=== PATIENT | male | born 1975 | race Caucasian/White ===

== ENCOUNTER 2016-11-25 14:10 | Inpatient (IN) | payer MEDICAID, OTHER ==
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
[2016-11-25 14:39] LABS: ABSOLUTE EOSINOPHILS # (AUTO) 0.1 10^3/uL (0.0-0.6); ABSOLUTE MONOCYTES (AUTO) 0.6 10^3/uL (0.1-1.4); ABSOLUTE NEUT (AUTO) 10.1 10^3/uL (1.7-8.2); BASOPHILS % (AUTO) 0.4 % (0-2); EOSINOPHILS % (AUTO) 0.5 % (0-6); HEMATOCRIT 46.5 % (37.9-51.0); HEMOGLOBIN 15.8 g/dL (13.5-17.0); HGB HCT DIFFERENCE 0.9; LYMPHOCYTES % (AUTO) 8.2 % (13-45); MEAN CORPUSCULAR HEMOGLOBIN 32.2 pg (27.0-33.4); MEAN CORPUSCULAR VOLUME 95 fl (80-97); MONOCYTES % (AUTO) 4.9 % (3-13); RED BLOOD COUNT 4.91 10^6/uL (4.35-5.55); RED CELL DISTRIBUTION WIDTH 13.6 % (11.5-14.0); WHITE BLOOD COUNT 11.7 10^3/uL (4.0-10.5)
[2016-11-25] MEDS ORDERED: ETOMIDATE INJ/PF 20 MG/10 ML SDV IV ONE ×2 (14:43→15:50)
[2016-11-25 14:45] LABS: ALANINE AMINOTRANSFERASE 38 U/L (21-72); ALBUMIN 4.9 g/dL (3.5-5.0); ALKALINE PHOSPHATASE 81 U/L (38-126); ANION GAP 11 (5-19); ASPARTATE AMINO TRANSFERASE 29 U/L (17-59); BILIRUBIN,DIRECT 0.5 mg/dL (0.0-0.4); BILIRUBIN,TOTAL 0.9 mg/dL (0.2-1.3); BLOOD UREA NITROGEN 16 mg/dL (7-20); CALCIUM 10.2 mg/dL (8.4-10.2); CARBON DIOXIDE 26 mmol/L (22-30); CHLORIDE 108 mmol/L (98-107); CREATINE KINASE 213 U/L (55-170); CREATININE RESULT 0.78 mg/dL (0.52-1.25); GLUCOSE 99 mg/dL (75-110); LIPASE 38.9 U/L (23-300); POTASSIUM 4.6 mmol/L (3.6-5.0); SODIUM 145.3 mmol/L (137-145); TOTAL PROTEIN 7.8 g/dL (6.3-8.2)
[2016-11-25 14:52] LABS: ALCOHOL < 10 mg/dL (NONE DETECTED)
[2016-11-25 14:56] LABS: CREATINE KINASE MB 2.62 ng/mL (<4.55)
[2016-11-25 14:58] LABS: TROPONIN I < 0.012 ng/mL
--- NOTE | 2016-11-25 15:03 | RADIOLOGY REPORT (SQ) ---
EXAM DESCRIPTION: CHEST SINGLE VIEW COMPLETED DATE/TIME: 11/25/2016 2:54 pm REASON FOR STUDY: post intubation COMPARISON: 05/09/2015 EXAM PARAMETERS: NUMBER OF VIEWS: One view. TECHNIQUE: Single frontal radiographic view of the chest acquired. RADIATION DOSE: NA LIMITATIONS: None. FINDINGS: LUNGS AND PLEURA: No new opacities, masses or pneumothorax. No pleural effusion. MEDIASTINUM AND HILAR STRUCTURES: No masses. Contour normal. HEART AND VASCULAR STRUCTURES: Heart normal in size. Normal vasculature. BONES: No acute findings. HARDWARE: Endotracheal tube terminates 5.5 cm above the audra. Nasogastric tube terminates expected location of the stomach. OTHER: No other significant finding. IMPRESSION: NO ACUTE RADIOGRAPHIC FINDING IN THE CHEST. SATISFACTORY PLACEMENT ENDOTRACHEAL TUBE AN D NASOGASTRIC TUBE. TECHNICAL DOCUMENTATION: JOB ID: [id number]
--- NOTE | 2016-11-25 15:10 | RADIOLOGY REPORT (SQ) ---
EXAM DESCRIPTION: CT HEAD WITHOUT COMPLETED DATE/TIME: 11/25/2016 3:02 pm REASON FOR STUDY: unresponsive COMPARISON: 05/09/2015. TECHNIQUE: Axial images acquired through the brain without intravenous contrast. Images reviewed wi th bone, brain and subdural windows. Images stored on PACS. All CT scanners at this facility use dose modulation, iterative reconstruction, and/or weight based d osing when appropriate to reduce radiation dose to as low as reasonably achievable (ALARA). [facility]: Dose Right [facility]: CareDose [facility]: Dose Right [facility]: Teradose 4D [facility]: Smart EndoInSight RADIATION DOSE: Up-to-date CT equipment and radiation dose reduction techniques were employed. CTDIv ol: 64.6 mGy. DLP: 1163 mGy-cm. mGy. LIMITATIONS: None. FINDINGS: VENTRICLES: Normal size and contour. CEREBRUM: No masses. No hemorrhage. No midline shift. Normal taylor/white matter differentiation. N o evidence for acute infarction. CEREBELLUM: No masses. No hemorrhage. No alteration of density. No evidence for acute infarction. EXTRAAXIAL SPACES: No fluid collections. No masses. ORBITS AND GLOBE: No intra- or extraconal masses. Normal contour of globe without masses. CALVARIUM: No fracture. PARANASAL SINUSES: No fluid or mucosal thickening. SOFT TISSUES: No mass or hematoma. OTHER: No other significant finding. IMPRESSION: NORMAL BRAIN CT WITHOUT CONTRAST. TECHNICAL DOCUMENTATION: JOB ID: [id number] Quality ID # [id number]: Final reports with documentation of one or more dose reduction techniques (e.g., Au tomated exposure control, adjustment of the mA and/or kV according to patient size, use of iterative reconstruction technique) 2010 [employer]- All Rights Reserved
[2016-11-25 15:28] LABS: ARTERIAL BLOOD BASE EXCESS 1.1 mmol/L; ARTERIAL BLOOD O2 SATURATION 96.6 % (94-98)
[2016-11-25 15:34] LABS: APPEARANCE,URINE CLEAR; BILIRUBIN,URINE NEGATIVE (NEGATIVE); GLUCOSE, URINE NEGATIVE (NEGATIVE); KETONES,URINE 20 mg/dL (NEGATIVE); LEUKOCYTE ESTERASE,URINE NEGATIVE (NEGATIVE); NITRITE,URINE NEGATIVE (NEGATIVE); PROTEIN,URINE NEGATIVE (NEGATIVE); UROBILINOGEN,URINE NEGATIVE mg/dL (<2.0)
[2016-11-25 15:47] LABS: URINE BARBITURATES SCREEN NEGATIVE; URINE METHADONE SCREEN NEGATIVE; URINE OPIATES LOW NEGATIVE; URINE PHENCYCLIDINE SCREEN NEGATIVE
[2016-11-25] MEDS ORDERED: NALOXONE HCL INJ 2 MG/2 ML DISP.SYRIN IV ONE (15:50)
[2016-11-25] MEDS ORDERED: ROCURONIUM BROMIDE INJ 50 MG/5 ML VIAL IV ONE (15:50)
[2016-11-25] MEDS ORDERED: ACETAMINOPHEN 650 MG SUPP.RECT PR PRN (16:19)
[2016-11-25] MEDS ORDERED: PIPERACILLIN/TAZOBACTAM 3.375 GM VIAL IV ONE (16:31)
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
[2016-11-25 17:38] LABS: CREATINE KINASE MB 2.64 ng/mL (<4.55)
[2016-11-25 17:40] LABS: TROPONIN I < 0.012 ng/mL
[2016-11-25] MEDS: NORMAL SALINE 1000 ML 1,000 ML IV PRN (22:00)
[2016-11-25] MEDS: PROPOFOL 100 ML IV PRN (22:00)
[2016-11-26] MEDS: NORMAL SALINE 1000 ML 1,000 ML IV PRN ×3 (01:46→20:59)
[2016-11-26] MEDS: PROPOFOL 100 ML IV PRN ×2 (01:46→07:31)
[2016-11-26 04:07] LABS: ABSOLUTE EOSINOPHILS # (AUTO) 0.1 10^3/uL (0.0-0.6); ABSOLUTE LYMPHOCYTES (AUTO) 1.3 10^3/uL (0.5-4.7); ABSOLUTE MONOCYTES (AUTO) 0.8 10^3/uL (0.1-1.4); ABSOLUTE NEUT (AUTO) 11.4 10^3/uL (1.7-8.2); BASOPHILS % (AUTO) 0.3 % (0-2); EOSINOPHILS % (AUTO) 0.5 % (0-6); HEMATOCRIT 40.3 % (37.9-51.0); HEMOGLOBIN 13.8 g/dL (13.5-17.0); HGB HCT DIFFERENCE 1.1; LYMPHOCYTES % (AUTO) 9.6 % (13-45); MEAN CORPUSCULAR HEMOGLOBIN 32.3 pg (27.0-33.4); MEAN CORPUSCULAR HGB CONC 34.2 g/dL (32.0-36.0); MEAN CORPUSCULAR VOLUME 94 fl (80-97); MONOCYTES % (AUTO) 5.9 % (3-13); RED BLOOD COUNT 4.27 10^6/uL (4.35-5.55); RED CELL DISTRIBUTION WIDTH 13.8 % (11.5-14.0); SEGMENTED NEUTROPHILS % (AUTO) 83.7 % (42-78); WHITE BLOOD COUNT 13.6 10^3/uL (4.0-10.5)
[2016-11-26 04:14] LABS: ALANINE AMINOTRANSFERASE 32 U/L (21-72); ALBUMIN 3.8 g/dL (3.5-5.0); ALKALINE PHOSPHATASE 65 U/L (38-126); ANION GAP 9 (5-19); ASPARTATE AMINO TRANSFERASE 17 U/L (17-59); BILIRUBIN,DIRECT 0.4 mg/dL (0.0-0.4); BILIRUBIN,TOTAL 0.8 mg/dL (0.2-1.3); BLOOD UREA NITROGEN 18 mg/dL (7-20); CALCIUM 9.2 mg/dL (8.4-10.2); CARBON DIOXIDE 24 mmol/L (22-30); CHLORIDE 111 mmol/L (98-107); CREATINE KINASE 149 U/L (55-170); CREATININE RESULT 0.72 mg/dL (0.52-1.25); GLUCOSE 91 mg/dL (75-110); MAGNESIUM 2.1 mg/dL (1.6-2.3); PHOSPHORUS 3.5 mg/dL (2.5-4.5); SODIUM 144.1 mmol/L (137-145); TOTAL PROTEIN 6.3 g/dL (6.3-8.2)
[2016-11-26 04:25] LABS: CREATINE KINASE MB 1.66 ng/mL (<4.55)
[2016-11-26 04:28] LABS: POTASSIUM 3.5 mmol/L (3.6-5.0); TROPONIN I < 0.012 ng/mL
--- NOTE | 2016-11-26 07:34 | EKG REPORT ---
SEVERITY:- ABNORMAL ECG - SINUS RHYTHM CARLYN, CONSIDER BIATRIAL ABNORMALITIES INCOMPLETE RIGHT BUNDLE BRANCH BLOCK : Confirmed by: Gunner Espinosa MD 26-Nov-2016 07:33:58
[2016-11-26] MEDS: POTASSI CL 20 MEQ/50 ML RIDER 20 MEQ/50 ML RTUPB IV SCH ×2 (09:25→10:10)
[2016-11-26] MEDS ORDERED: GABAPENTIN 300 MG CAPSULE PO ONE (10:00)
[2016-11-26] MEDS ORDERED: PANTOPRAZOLE SODIUM 40 MG VIAL IV SCH (10:00)
[2016-11-26] MEDS: TRAMADOL HCL 50 MG TABLET PO PRN ×4 (10:03→23:59)
[2016-11-26] MEDS: ENOXAPARIN SODIUM INJ 40 MG/0.4 ML DISP.SYRIN SUBCUT SCH (10:07)
--- NOTE | 2016-11-26 10:12 | PDOC PROGRESS REPORT ---
Subjective Progress Note for:: 11/26/16 Subjective:: Pt was seen earlier this morning while intubated. Sedation was turned off and pt was awake. Pt was able to follow commands without difficulty. Pt was seen again after extubation and he stated that he took gabapentin, baclofen, and alcohol together which caused him to pass out. Pt's family is present. Spoke to pt's boyfriend in the hallway. Physical Exam Vital Signs: Temp Pulse Resp BP Pulse Ox 99.3 F 86 24 H 110/62 100 11/26/16 08:00 11/26/16 09:26 11/26/16 09:26 11/26/16 09:26 11/26/16 09:26 Intake & Output 11/25/16 11/26/16 11/27/16 06:59 06:59 06:59 Intake Total 1895 Output Total 675 100 Balance 1220 -100 Weight 84.7 kg General appearance: PRESENT: no acute distress, well-developed, well-nourished Head exam: PRESENT: atraumatic, normocephalic Eye exam: PRESENT: conjunctiva pink, EOMI, PERRLA. ABSENT: scleral icterus Ear exam: PRESENT: normal external ear exam Mouth exam: PRESENT: moist, tongue midline Neck exam: ABSENT: carotid bruit, JVD, lymphadenopathy, thyromegaly Respiratory exam: PRESENT: clear to auscultation christopher. ABSENT: rales, rhonchi, wheezes Cardiovascular exam: PRESENT: RRR. ABSENT: diastolic murmur, rubs, systolic murmur Pulses: PRESENT: normal dorsalis pedis pul Vascular exam: PRESENT: normal capillary refill GI/Abdominal exam: PRESENT: normal bowel sounds, soft. ABSENT: distended, guarding, mass, organolmegaly, rebound, tenderness Extremities exam: PRESENT: full ROM. ABSENT: calf tenderness, clubbing, pedal edema Musculoskeletal exam: PRESENT: full ROM Neurological exam: PRESENT: alert, awake, oriented to person, oriented to place , oriented to time, oriented to situation, CN II-XII grossly intact. ABSENT: motor sensory deficit Psychiatric exam: PRESENT: depressed, flat affect Skin exam: PRESENT: dry, warm Results Laboratory Results: 11/26/16 03:49 11/26/16 03:49 11/26/16 11/26/16 11/26/16 03:49 03:49 03:49 WBC 13.6 H RBC 4.27 L Hgb 13.8 Hct 40.3 MCV 94 MCH 32.3 MCHC 34.2 RDW 13.8 Plt Count 158 Seg Neutrophils % 83.7 H Lymphocytes % 9.6 L Monocytes % 5.9 Eosinophils % 0.5 Basophils % 0.3 Absolute Neutrophils 11.4 H Absolute Lymphocytes 1.3 Absolute Monocytes 0.8 Absolute Eosinophils 0.1 Absolute Basophils 0.0 Sodium 144.1 Potassium 3.5 L D Chloride 111 H Carbon Dioxide 24 Anion Gap 9 BUN 18 Creatinine 0.72 Est GFR ( Amer) > 60 Est GFR (Non-Af Amer) > 60 Glucose 91 Calcium 9.2 Phosphorus 3.5 Magnesium 2.1 Total Bilirubin 0.8 AST 17 ALT 32 Alkaline Phosphatase 65 Total Protein 6.3 Albumin 3.8 Triglycerides 129 11/25/16 11/25/16 11/26/16 16:59 16:59 03:49 Creatine Kinase 216 H 149 CK-MB (CK-2) 2.64 Troponin I < 0.012 11/26/16 03:49 Creatine Kinase CK-MB (CK-2) 1.66 Troponin I < 0.012 Impressions: Head CT 11/25/16 14:27 IMPRESSION: NORMAL BRAIN CT WITHOUT CONTRAST. Chest X-Ray 11/25/16 14:28 IMPRESSION: NO ACUTE RADIOGRAPHIC FINDING IN THE CHEST. SATISFACTORY PLACEMENT ENDOTRACHEAL TUBE AND NASOGASTRIC TUBE. Assessment & Plan - Diagnosis (1) Acute hypercapnic respiratory failure Is this a current diagnosis for this admission?: Yes Plan: Pt extubated this morning. Pt current doing well on room air. Will check CXR in am. (2) Acute encephalopathy Is this a current diagnosis for this admission?: Yes Plan: Resolved. Pt alert and oriented X 3. (3) Drug overdose, intentional Qualifiers: Encounter type: initial encounter Qualified Code(s): T50.902A - Poisoning by unspecified drugs, medicaments and biological substances, intentional self- harm, initial encounter Is this a current diagnosis for this admission?: Yes Plan: Boyfriend states that pt was stating that he wanted to kill himself. Pt states that he took gabapentin, baclofen, and alcohol together. (4) Hypokalemia Is this a current diagnosis for this admission?: Yes Plan: Will give Potassium replacement. (5) Suicidal intent Is this a current diagnosis for this admission?: Yes Plan: Pt on IVC. Pt will have sitter. (6) Chemical pneumonitis Is this a current diagnosis for this admission?: Yes Plan: Zosyn. Pt was febrile overnight. Pt's sputum culture positive for Gram Neg Organism. (7) Depression Qualifiers: Depression Type: major depressive disorder Major depression recurrence: recurrent Is this a current diagnosis for this admission?: Yes Plan: Pt's Partner states that pt has had problems with depression in the past. Will have pt evaluated further. (8) H/O ETOH abuse Is this a current diagnosis for this admission?: Yes Plan: Will give Rally bag. (9) Chronic back pain Qualifiers: Back pain location: low back pain Back pain laterality: left Sciatica presence: with sciatica Sciatica laterality: sciatica of left side Qualified Code(s): M54.42 - Lumbago with sciatica, left side; G89.29 - Other chronic pain Is this a current diagnosis for this admission?: Yes Plan: Will restart Gabapentin and tramadol. Baclofen discontinued. (10) Sciatica Qualifiers: Laterality: unspecified laterality Qualified Code(s): M54.30 - Sciatica, unspecified side Is this a current diagnosis for this admission?: Yes Plan: Chronic issues. Supportive care. Will restart Gabapentin and Tramadol. (11) DVT prophylaxis Is this a current diagnosis for this admission?: Yes (12) Narcotic abuse in remission Is this a current diagnosis for this admission?: Yes Plan: Supportive care.
--- NOTE | 2016-11-26 10:59 | RADIOLOGY REPORT (SQ) ---
EXAM DESCRIPTION: CHEST SINGLE VIEW COMPLETED DATE/TIME: 11/26/2016 10:49 am REASON FOR STUDY: Extubated COMPARISON: 11/25/2016 EXAM PARAMETERS: NUMBER OF VIEWS: One view. TECHNIQUE: Single frontal radiographic view of the chest acquired. RADIATION DOSE: NA LIMITATIONS: None. FINDINGS: LUNGS AND PLEURA: No opacities, masses or pneumothorax. No pleural effusion. MEDIASTINUM AND HILAR STRUCTURES: No masses. Contour normal. HEART AND VASCULAR STRUCTURES: Heart normal in size. Normal vasculature. BONES: No acute findings. HARDWARE: None in the chest. OTHER: No other significant finding. IMPRESSION: NO ACUTE RADIOGRAPHIC FINDING IN THE CHEST. TECHNICAL DOCUMENTATION: JOB ID: [id number]
[2016-11-26] MEDS: PIPERACILLIN SODIUM/TAZOBACTAM 3.375 GM in NORMAL SALINE 100 ML IV SCH ×3 (11:50→23:59)
[2016-11-26] MEDS: GABAPENTIN 300 MG CAPSULE PO SCH ×3 (11:50→23:59)
[2016-11-26] MEDS ORDERED: LIDOCAINE 5% (700 MG) TRANSDERMAL ADH..PATCH TP ONE (16:00)
--- NOTE | 2016-11-26 16:28 | PSYCHOLOGICAL NOTE ---
Psych Note - Psych Note Psych Note: Patient is a 41 year old male who has been admitted to [facility] due to polypharm overdose, requiring intubation to protect his airway. Patient was subsequently admitted to ICU; however, was extubated this morning. Patient states he is currently experiencing a tremendous amount of pain. Patient states the pain medication no longer works, and he decided to drink alcohol, which he states is good for temporarily getting rid of pain. He states he took his nighttime dose of Lyrica and Baclofin, and states the combination was "too much." Patient states he cannot recall if he took more medication then what is prescribed. He states he was intoxicated from drinking half a bottle of tequila, and cannot remember. Patient denies this was a suicide attempt. Patient states he would have never have tried suicide but cannot remember if he took extra pills. Patient does report that his boyfriend provides him with his pills, but cannot recall if they are just laid out or if they are in a weekly pill counter. Patient states he does have access to the pill bottles. Patient states he has disability from the state of [place] due to two herniated discs (L4 & L5). Patient states he has had multiple surgeries, as recently as April 2016 in [place]. He states he has not engaged in outpatient or pain management here in [place], where he has lived for 2 years, because his [place] Medicaid will not cover services here. Patient states he has been told by numerous individuals (non professionals) that he would be ineligible in [place] for Medicaid and has not applied. Patient states he has an appointment in 4 days in [place] for a third surgery. Patient reports he stays with them in [place], and uses their address as his home address for insurance purposes. When discussing depression and history of suicide attempts, patient does acknowledge that he has had 2 prior attempts, specifically at age 16 and once last year requiring medical attention here in this hospital. Patient states he moved here to be with his boyfriend, but is not sure on their current status. Patient then states that the episode last year was not a suicide attempt, just another example of him drinking and wanting the pain to subside. Nurse reports patient will likely be downgraded to the floor. Patient presents with some mild confusion and appears to struggle to accurately recall information. Patient does acknowledge that he is unsure of the future of his relationship, and that his boyfriend may not wish to continue the relationship. Patient will be reevaluated likely tomorrow to allow for him to clear mentally and provide accurate recall of information. Patient is recommended to remain under IVC for further evaluation and disposition. Will track.
[2016-11-26] MEDS ORDERED: ACETAMINOPHEN 325 MG TABLET ONE (17:22)
[2016-11-26] MEDS: FAMOTIDINE 20 MG TABLET PO SCH (21:00)
[2016-11-26] MEDS: ACETAMINOPHEN 325 MG TABLET PO PRN (21:00)
[2016-11-27] MEDS: ACETAMINOPHEN 325 MG TABLET PO PRN (04:01)
[2016-11-27] MEDS: TRAMADOL HCL 50 MG TABLET PO PRN ×3 (04:01→12:44)
[2016-11-27 05:26] LABS: ABSOLUTE BASOPHILS # (AUTO) 0.1 10^3/uL (0.0-0.2); ABSOLUTE EOSINOPHILS # (AUTO) 0.1 10^3/uL (0.0-0.6); ABSOLUTE LYMPHOCYTES (AUTO) 1.5 10^3/uL (0.5-4.7); ABSOLUTE MONOCYTES (AUTO) 0.7 10^3/uL (0.1-1.4); ABSOLUTE NEUT (AUTO) 7.2 10^3/uL (1.7-8.2); BASOPHILS % (AUTO) 0.6 % (0-2); EOSINOPHILS % (AUTO) 1.5 % (0-6); HEMATOCRIT 41.1 % (37.9-51.0); HEMOGLOBIN 14.1 g/dL (13.5-17.0); HGB HCT DIFFERENCE 1.2; LYMPHOCYTES % (AUTO) 15.2 % (13-45); MEAN CORPUSCULAR HGB CONC 34.4 g/dL (32.0-36.0); MEAN CORPUSCULAR VOLUME 96 fl (80-97); MONOCYTES % (AUTO) 7.4 % (3-13); RED BLOOD COUNT 4.28 10^6/uL (4.35-5.55); RED CELL DISTRIBUTION WIDTH 13.4 % (11.5-14.0); SEGMENTED NEUTROPHILS % (AUTO) 75.3 % (42-78); WHITE BLOOD COUNT 9.6 10^3/uL (4.0-10.5)
[2016-11-27] MEDS: GABAPENTIN 300 MG CAPSULE PO SCH ×2 (05:28→12:44)
[2016-11-27] MEDS: PIPERACILLIN SODIUM/TAZOBACTAM 3.375 GM in NORMAL SALINE 100 ML IV SCH ×2 (05:28→12:44)
[2016-11-27 05:42] LABS: ALANINE AMINOTRANSFERASE 37 U/L (21-72); ALBUMIN 4.1 g/dL (3.5-5.0); ALKALINE PHOSPHATASE 76 U/L (38-126); ANION GAP 10 (5-19); ASPARTATE AMINO TRANSFERASE 36 U/L (17-59); BILIRUBIN,DIRECT 0.5 mg/dL (0.0-0.4); BLOOD UREA NITROGEN 20 mg/dL (7-20); CALCIUM 9.5 mg/dL (8.4-10.2); CARBON DIOXIDE 23 mmol/L (22-30); CHLORIDE 109 mmol/L (98-107); CREATININE RESULT 0.73 mg/dL (0.52-1.25); GLUCOSE 96 mg/dL (75-110); POTASSIUM 3.6 mmol/L (3.6-5.0); TOTAL PROTEIN 6.5 g/dL (6.3-8.2)
[2016-11-27] MEDS: ENOXAPARIN SODIUM INJ 40 MG/0.4 ML DISP.SYRIN SUBCUT SCH (09:01)
[2016-11-27] MEDS: NORMAL SALINE 1000 ML 1,000 ML IV PRN (09:05)
[2016-11-27] MEDS ORDERED: LIDOCAINE 5% (700 MG) TRANSDERMAL ADH..PATCH TP SCH (10:00)
[2016-11-27] MEDS: FAMOTIDINE 20 MG TABLET PO SCH (10:05)
--- NOTE | 2016-11-27 12:56 | PSYCHOLOGICAL NOTE ---
Psych Note - Psych Note Psych Note: Conducted check in with patient who is a 41 year old male under IVC due to polypharm overdose. Patient today maintains that this was not an attempt at suicide, despite initial reports from collateral contacts. Patient today states he thinks it was the mixture of alcohol and pills which caused the episode. Patient states he is in pain, and it is not being properly managed at this time. Patient states his parents, who are bedside, plan to take him back to [place] today if possible, so he may attend his appointment with surgical in three days. Patient states he is unsure of his future with his significant other; however, feels he must first address his chronic pain. Patient states he would like to be discharged to his parent's care to travel back to [place] to begin the process of a 3rd surgery, this time he states for possible stimulator implant. Patient states his only "crime" was trying to go to sleep while in excruciating pain. Patient provides consent to speak with his parents. Mother and father collectively report they do not believe the patient attempted suicide. They state they need to get on the road to go to [place], and are waiting on patient to be released from the involuntary commitment. Father states, "he did not try and kill himself. He is in pain." Father states he is also waiting on an xray of the R ankle. Father states the patient's nurse could not provide a timeframe of when this may occur, so he went down to radiology to ask. Father maintains, despite being challenged by clinician with HIPPA laws, that he was informed by radiology there was no order. Father and mother again state they would like to return to [place], and leave immediately with their son. Both adamantly deny the patient has been experiencing depressive symptoms and or suicidal ideations. Patient is A&O. Mood is anxious with congruent affect. Patient denies suicidal/ homicidal ideations, intent, plan, or means. Patient denies A/V H; delusions not noted. Thought processes were goal oriented towards pain medications (asked numerous times) as well as discharge. Conversational speech was WNL for prosody. Intellectual abilities were estimated within average range. Attention and focus were fair. Insight, judgment, and impulse control were poor. Diagnosis: Deferred Patient is psychiatrically cleared for discharge. Patient is recommended for rescind IVC and discharge to his parents for oversight. Patient is adamant that he did not attempt suicide, which is corroborated by his parents who are willing to oversee patient, and specifically manage his medications. Parents are in agreement to monitor patient's use of medications, and provided his doses only as prescribed. Patient was provided resources for possible return to this [facility] area. Consulted with Dr. Mas i regards to the care and management of this patient. Hospitalist made aware and states he is in agreement with plan of care. Patient is encouraged to engage in a substance abuse assessment upon his return. No further recommendations at this time. Thank you kindly for this consultation.
--- NOTE | 2016-11-27 13:01 | RADIOLOGY REPORT (SQ) ---
EXAM DESCRIPTION: ANKLE LEFT COMPLETE COMPLETED DATE/TIME: 11/27/2016 12:05 pm REASON FOR STUDY: PAIN AND SWELLING COMPARISON: None. NUMBER OF VIEWS: Three views. TECHNIQUE: AP, lateral, and oblique radiographic images acquired of the left ankle. LIMITATIONS: None. FINDINGS: MINERALIZATION: Bones are osteopenic BONES: No acute fracture or dislocation. No worrisome bone lesions. JOINTS: No ankle joint effusion. SOFT TISSUES: Diffuse lateral soft tissue swelling. No foreign body. OTHER: No other significant finding. IMPRESSION: Lateral soft tissue swelling. No acute fracture or malalignment. TECHNICAL DOCUMENTATION: JOB ID: [id number] [employer] All Rights Reserved
[2016-11-27 13:12] VITALS: BP 124/59
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
[2016-11-27] MEDS ORDERED: PHARMACY COMMUNICATION ORDER MC SCH (22:00)
== END 2016-11-27 14:15 | disposition home or self-care (01) | DRG 917 ==
LOC: ER 14:10 → EH 16:19 → UNDOADMIN 16:34 → ICU 18:48 → 5 11-26 19:12
PROVIDERS: ADMIT Family Medicine; ATTEND Family Medicine
PROC: 5A1935Z Respiratory Ventilation, Less than 24 Consecutive Hours (ICD-10-PCS; principal; 2016-11-25)
PROC: 0BH17EZ Insertion of Endotracheal Airway into Trachea, Via Natural or Artificial Opening (ICD-10-PCS; 2016-11-25)
DX: T42.6X2A Poisoning by other antiepileptic and sedative-hypnotic drugs, intentional self-harm, initial encounter (principal); J96.02 Acute respiratory failure with hypercapnia; J69.0 Pneumonitis due to inhalation of food and vomit; T42.8X2A Poisoning by antiparkinsonism drugs and other central muscle-tone depressants, intentional self-harm, initial encounter; T51.0X2A Toxic effect of ethanol, intentional self-harm, initial encounter; E87.6 Hypokalemia; F32.9 Major depressive disorder, single episode, unspecified; G89.29 Other chronic pain; M54.9 Dorsalgia, unspecified; M54.30 Sciatica, unspecified side; B96.20 Unspecified Escherichia coli [E. coli] as the cause of diseases classified elsewhere; B95.1 Streptococcus, group B, as the cause of diseases classified elsewhere; F17.210 Nicotine dependence, cigarettes, uncomplicated; Z79.899 Other long term (current) drug therapy
CPT/HCPCS: 36415; 70450; 71010; 80053; 80307; 81001; 82550; 82553; 82803; 83690; 83735; 84100; 84478; 84484; 85025; 87040; 87070; 87077; 87086; 87186; 87205; 93005; 93010; 94002; 94003; 94799; 96374; 99291; J1650; J2310; J2543; J2704; J3480; J3490; J7030; S0164

== ENCOUNTER 2017-05-02 20:47 | Emergency (ER) | payer OTHER ==
--- NOTE | 2017-05-02 22:22 | ER Document Report ---
ED Medical Screen (RME) - General Chief Complaint: Leg Pain Stated Complaint: LEFT LEG PAIN Time Seen by Provider: 05/02/17 22:12 Mode of Arrival: Ambulatory Information source: Patient TRAVEL OUTSIDE OF THE [place] IN LAST 30 DAYS: No - HPI Notes: 05/02/17 22:20 Patient arrives with complaints of left leg pain. Patient has a long history of chronic back pain and sciatica in the left leg. States that over the last several days he has felt like his left leg has become swollen, the veins in his foot seem to be more prominent he has been having "muscle cramps "in his calf for the last few days. He denies any specific injury to this area. He denies any recent long trips or recent surgeries, he denies any history of DVT or PE. He does report possibly twisting his ankle a few weeks ago due to his abnormal gait secondary to his sciatica and drop foot. He denies any fevers. Patient is nontoxic appearing. Left leg does appear more swollen than the right. Veins appear more prominent in the left foot and ankle. Foot is warm. Dorsalis pedis pulse is +2. Cap refill is brisk. Mild tenderness to palpation of the left calf. No erythema. Patient was evaluated in triage and was medically screened. Any pertinent orders based on the patient's complaints were ordered at this time. Patient will require further evaluation and will be taken to a room for further evaluation by another provider. This was explained to the patient and/or family at this time. - Related Data Allergies/Adverse Reactions: No Known Allergies Allergy (Verified 11/25/16 16:01) Past Medical History Renal/ Medical History: Denies: Hx Peritoneal Dialysis Psychiatric Medical History: Reports: Hx Depression Past Surgical History: Reports: Hx Orthopedic Surgery - Immunizations Hx Diphtheria, Pertussis, Tetanus Vaccination: Yes Physical Exam - Vital signs Vitals: Temp Pulse Resp BP Pulse Ox 98.6 F 64 18 111/59 L 96 05/02/17 22:03 05/02/17 22:03 05/02/17 22:03 05/02/17 22:03 05/02/17 22:03 Course - Vital Signs Vital signs: Temp Pulse Resp BP Pulse Ox 98.6 F 64 18 111/59 L 96 05/02/17 22:03 05/02/17 22:03 05/02/17 22:03 05/02/17 22:03 05/02/17 22:03
--- NOTE | 2017-05-02 23:01 | RADIOLOGY REPORT (SQ) ---
EXAM DESCRIPTION: ANKLE LEFT COMPLETE COMPLETED DATE/TIME: 05/02/2017 10:36 pm REASON FOR STUDY: ankle injury COMPARISON: None. NUMBER OF VIEWS: Three views. TECHNIQUE: AP, lateral, and oblique radiographic images acquired of the left ankle. LIMITATIONS: None. FINDINGS: MINERALIZATION: Normal. BONES: No acute fracture or dislocation. No worrisome bone lesions. JOINTS: No effusions. SOFT TISSUES: Mild soft tissue swelling. No foreign body. OTHER: No other significant finding. IMPRESSION: No fracture. TECHNICAL DOCUMENTATION: JOB ID: [id number] [employer]- All Rights Reserved
[2017-05-03] MEDS ORDERED: OXYCODONE-ACETAMINOPHEN 5-325 MG TABLET PO ONE (00:54)
[2017-05-03] MEDS ORDERED: HYDROCODONE/ACETAMINOPHEN 5-325 MG (6 TAB/ER DISP) PO PRN (00:54)
--- NOTE | 2017-05-03 00:56 | ER Document Report ---
HPI - HPI Patient complains to provider of: left leg pain Pain Level: 4 Context: Patient is a 42-year-old male comes emergency department for chief complaint of left leg pain. He has a long history that includes chronic back pain and sciatica, mainly in the left leg. He states over the past few days his left leg has become more tender, appears to have become more swollen. He states he did twist his ankle a few days ago but he is not sure if this is related to his current situation. Patient states he sees neurology and primary care in [place] and has been driving back and forth. He smokes. No history of blood clot, no family history of blood clots, no recent surgery. - REPRODUCTIVE Reproductive: DENIES: : - DERM Skin Color: Normal, Antwon Past Medical History - General Information source: Patient - Social History Smoking Status: Current Every Day Smoker Chew tobacco use (# tins/day): No Frequency of alcohol use: Rare Drug Abuse: None Lives with: Family Family History: Reviewed & Not Pertinent, Other - Chronic back pain. Substance abuse. Patient has suicidal ideation: No Patient has homicidal ideation: No Renal/ Medical History: Denies: Hx Peritoneal Dialysis Musculoskeltal Medical History: Reports Hx Musculoskeletal Deformity, Reports Hx Musculoskeletal Trauma Psychiatric Medical History: Reports: Hx Depression Past Surgical History: Reports: Hx Orthopedic Surgery - Immunizations Hx Diphtheria, Pertussis, Tetanus Vaccination: Yes Vertical Provider Document - CONSTITUTIONAL General Appearance: WD/WN, No Apparent Distress - INFECTION CONTROL TRAVEL OUTSIDE OF THE [place] IN LAST 30 DAYS: No - HEENT HEENT: Atraumatic, Normocephalic - NECK Neck: Normal Inspection - RESPIRATORY Respiratory: Breath Sounds Normal, No Respiratory Distress O2 Sat by Pulse Oximetry: 96 - CARDIOVASCULAR Cardiovascular: Regular Rate, Regular Rhythm - GI/ABDOMEN Gastrointestinal: Abdomen Soft, Abdomen Non-Tender - BACK Back: Normal Inspection - MUSCULOSKELETAL/EXTREMETIES Musculoskeletal/Extremeties: Tender - Left lower extremity does appear to have swelling mainly at the distal tibia and over the lateral ankle. Pain with range of motion and palpation over the general area. No pitting edema. No abnormal erythema or heat. Normal dorsalis pedis. Normal range of motion at the knee and ankle joints. Course - Re-evaluation Re-evalutation: X-ray unremarkable. Unfortunately at this time of night we do not have venous Doppler ultrasound, patient has risk factors of long distance travel and smoking. Discussed with patient. At this time no blood thinner will be given but patient will have venous Doppler ultrasound performed in the morning, he requests a prescription for this to be done, states he will come back for it. - Vital Signs Vital signs: Temp Pulse Resp BP Pulse Ox 98.6 F 64 18 111/59 L 96 05/02/17 22:03 05/02/17 22:03 05/02/17 22:03 05/02/17 22:03 05/02/17 22:03 Discharge - Discharge Clinical Impression: Left leg pain Condition: Stable Disposition: HOME, SELF-CARE Additional Instructions: The x-ray shows no abnormality. Based on your risk factors and your exam a blood clot must be ruled out. Please call the provided number at 8 AM, set up this venous Doppler ultrasound and have it performed today. Return to the emergency department for any concerning or worsening symptoms or if something is not right. Forms: Follow-Up Outpatient Testing
[2017-05-03 01:22] VITALS: BP 104/49
== END 2017-05-03 01:22 | disposition home or self-care (01) ==
LOC: ER 20:47
DX: M79.605 Pain in left leg (principal); F17.200 Nicotine dependence, unspecified, uncomplicated
CPT/HCPCS: 99283

== ENCOUNTER → 2017-05-03 | Outpatient (CLI) | payer OTHER ==
--- NOTE | 2017-05-03 16:51 | RADIOLOGY REPORT (SQ) ---
EXAM DESCRIPTION: VENOUS UNILATERAL LOWER COMPLETED DATE/TIME: 05/03/2017 4:42 pm REASON FOR STUDY: LLE PAIN M79.605 PAIN IN LEFT LEG COMPARISON: None. TECHNIQUE: Dynamic and static taylor scale and color images acquired of the left leg venous system. Se lected spectral images acquired with additional compression and augmentation maneuvers. The contralat eral common femoral vein and saphenofemoral junction were also imaged. Images stored on PACS. LIMITATIONS: None. FINDINGS: COMMON FEMORAL: Normal phasicity, compression and augmentation. No visualized echogenic ma terial on taylor scale. No defects on color images. FEMORAL: Normal compression and augmentation. No visualized echogenic material on taylor scale. No defe cts on color images. POPLITEAL: Normal compression, augmentation. No visualized echogenic material on taylor scale. No defec ts on color images. CALF VESSELS: Normal compression, augmentation. No visualized echogenic material on taylor scale. No de fects on color images. GSV and SSV: Normal compression, augmentation. No visualized echogenic material on taylor scale. No def ects on color images. ANY DEEP VENOUS INSUFFICIENCY: Not evaluated. ANY EVIDENCE OF POPLITEAL CYST: No. OTHER: No other significant finding. CONTRALATERAL COMMON FEMORAL VEIN AND SAPHENOFEMORAL JUNCTION: Normal phasicity, compression and augmentation. No visualized echogenic material on taylor scale. No de fects on color images. IMPRESSION: NO EVIDENCE DVT OR SVT IN THE LEFT LEG. TECHNICAL DOCUMENTATION: JOB ID: [id number] [employer]- All Rights Reserved
== END ==
LOC: SP 16:06
DX: M79.605 Pain in left leg (principal); M79.89 Other specified soft tissue disorders
CPT/HCPCS: 93971

== ENCOUNTER 2017-10-02 17:33 | Emergency (ER) | payer MEDICAID ==
[2017-10-02] MEDS ORDERED: DEXAMETHASONE SOD PHOS INJ 10 MG/1 ML VIAL IM ONE (18:21)
[2017-10-02] MEDS ORDERED: HYDROCODONE/ACETAMINOPHEN 5-325 MG (6 TAB/ER DISP) PO PRN (18:21)
--- NOTE | 2017-10-02 18:22 | ER Document Report ---
ED Neck/Back Problem - General Chief Complaint: Back Pain Stated Complaint: LEFT LEG PAIN/BACK PAIN Time Seen by Provider: 10/02/17 18:02 Mode of Arrival: Ambulatory Information source: Patient Notes: 42-year-old male presents to ED for complaint of severe back pain with sciatica to the inside of the thigh. Patient has a long history of chronic back pain with multiple back surgeries discectomies for this pain. He has his neurosurgeon in [facility]. He states he called this surgeon and she got him to come to the emergency room. He states this incident of back pain started when he was doing some yard trimming yesterday. He states the pain kept getting worse and worse and he began to feel like his left leg was getting more and more weak. He states he has Allodynia to the left leg due to his first surgery. He states he last saw his surgeon about 3 or 4 months ago. He is on Lyrica for his chronic pain. 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 He states he does not have a local doctor. He has been informed he needs to get a local doctor. TRAVEL OUTSIDE OF THE [place] IN LAST 30 DAYS: No - HPI Patient complains to provider of: Lower back Onset: Other - Chronic worse starting yesterday Where: Outdoors - Is visiting a friend in this area he lives in [place] and comes back and forth he was outside trimming around the driveway yesterday when the pain started Onset: Chronic Timing: Waxing and waning, Still present Quality of pain: Sharp, Throbbing Severity: Severe Pain Level: 5 Context: Other - Main driveway yesterday Recent injury: No - Irritation to a chronic problem Associated symptoms: Like prior neck/back pain, Radiation to leg, Lower back pain. denies: Constipation, Incontinence, Motor loss, Numbness/tingling, Sensory loss, Unable to urinate Exacerbated by: Movement of trunk, Sitting position Relieved by: Nothing Similar symptoms previously: Yes Recently seen / treated by doctor: No - Related Data Allergies/Adverse Reactions: No Known Allergies Allergy (Verified 11/25/16 16:01) Past Medical History - General Information source: Patient, Emergency Med Personnel - Social History Smoking Status: Former Smoker Cigarette use (# per day): No Chew tobacco use (# tins/day): No Smoking Education Provided: No Frequency of alcohol use: Social Drug Abuse: None Lives with: Friend Family History: Reviewed & Not Pertinent, Other - Chronic back pain. Substance abuse. Patient has suicidal ideation: No Patient has homicidal ideation: No - Past Medical History Cardiac Medical History: Reports: Hx DVT Pulmonary Medical History: Reports: Hx Respiratory Failure EENT Medical History: Reports: None Neurological Medical History: Reports: None Endocrine Medical History: Reports: None Renal/ Medical History: Reports: None Malignancy Medical History: Reports None Musculoskeltal Medical History: Reports Hx Musculoskeletal Deformity, Reports Hx Musculoskeletal Trauma Psychiatric Medical History: Reports: Hx Depression Past Surgical History: Reports: Hx Orthopedic Surgery - Multiple back surgeries - Immunizations Hx Diphtheria, Pertussis, Tetanus Vaccination: Yes Review of Systems - Review of Systems Musculoskeletal: Back pain, Muscle pain, Muscle stiffness Physical Exam - Vital signs Vitals: Temp Pulse Resp BP Pulse Ox 98.5 F 66 20 113/92 H 98 10/02/17 17:37 10/02/17 17:37 10/02/17 17:37 10/02/17 17:37 10/02/17 17:37 - Back Back: Tender, Vertebra tenderness, Scars. No: Deformity/step-off, CVA tenderness, Scoliosis, Wounds - Extremities General upper extremity: Normal inspection, Nontender, Normal color, Normal ROM , Normal temperature General lower extremity: Normal inspection, Normal color, Normal temperature, Normal weight bearing. No: Lee Ann's sign Hip: Tender Knee: Tender Calf: Tender Ankle: Tender, Edema Foot: Tender, Edema Course - Re-evaluation Re-evalutation: 10/02/17 20:55 Patient has chronic back pain. He had no pulsatile abdominal masses. He had no symptoms of cauda equina, he had some edema to the left leg and he states he has allodynia in this leg so I was not able to fully examine it due to the pain. Discussed his history and physical with Dr. Fuentes who stated he had none of the red flags and did not need an MRI at this time. Patient was treated and discharged home with the Kayentis dispense pack with his friend. He verbalized that he had no plans of hurting himself with his drugs. Patient is to call his orthopedic surgeon tomorrow and ice also to find a local orthopedic surgeon to follow his care. If he continues to have pain in this area he needs to get a referral to pain management. - Vital Signs Vital signs: Temp Pulse Resp BP Pulse Ox 98.3 F 61 16 136/64 H 97 10/02/17 18:49 10/02/17 18:49 10/02/17 18:49 10/02/17 18:49 10/02/17 18:49 Discharge - Discharge Clinical Impression: Chronic back pain greater than 3 months duration Sciatica Qualifiers: Laterality: right Qualified Code(s): M54.31 - Sciatica, right side Condition: Stable Disposition: HOME, SELF-CARE Additional Instructions: Chronic Back Pain Chronic back pain (pain persisting longer than three months) is a common problem. A medical evaluation can look for herniated disc, arthritis, osteoporosis, tumors, and infections. But at least half the time, there's no obvious treatable cause. Anxiety and depression tend to worsen back pain. Ibuprofen or other anti-inflammatory medicine can help. A heating pad, used for 15-20 minutes at a time, can ease pain. For this type of back pain, narcotic medicines should be avoided. Muscle relaxers are rarely helpful unless you're having spasms. Activity is important. Find an aerobic exercise program that your back can tolerate. Too much rest makes back pain worse. Specific back exercises are usually prescribed to strengthen the back and abdominal muscles. Often, a physical therapist can help. Avoid heavy lifting, working while bent over, or standing with both knees straight. Most back pain patients do better with a firm mattress. If new symptoms of a "herniated disc" (radiation of pain, numbness, or tingling down the back of the leg or weakness in the leg) occur, you should be re-examined. ORAL NARCOTIC MEDICATION: You have been given a Piehole dispense pack for pain control. This medication is a narcotic. It's best taken with food, as nausea can result if taken on an empty stomach. Don't operate machinery or drive within six hours of taking this medication. Do not combine this medicine with alcohol, or with any medication which can cause sedation (such as cold tablets or sleeping pills) unless you get permission from the physician. Narcotics tend to cause constipation. If possible, drink plenty of fluids and eat a diet high in fiber and fruits. Please be aware that prescription narcotics also have the potential for abuse. People become addicted to these medications because of the general sense of wellbeing that they induce. This feeling along with a significant reduction in tension, anxiety, and aggression provides a stimulating seductive quality to these drugs. Once your pain is under control, we encourage you to discard your unused narcotics. ICE PACKS: Apply ice packs frequently against the painful area. Many different schedules are recommended, such as "20 minutes on, 20 minutes off" or "one hour ice, two hours rest." If you need to work, you may need to go longer between ice treatments. You should plan to have the area ice packed AT LEAST one fourth of the time. The ice should be applied over the wrap, tape, or splint, or over a layer of cloth -- not directly against the skin. Some ice bags have a built-in cloth and can be put directly on the skin. WARM PACKS: After approximately two days, apply gentle heat (such as a heating pad or hot water bottle) for about 20 to 30 minutes about every two hours -- at least four times daily. Warmth and elevation will help you make a more rapid recovery , and will ease the pain considerably. Do not use HOT heat, and never apply heat for longer than 30 minutes. The continuous heat can invisibly damage skin and muscles -- even when no burn is seen on the surface. Damaged muscles can make you MORE sore. STEROID MEDICATION: You have been given an injection of medicine of the cortisone/steroid class. This medication is used to control inflammation or allergy. It is often continued as a pill for a short period of time, until the acute process subsides. There are usually no side effects from short-term use of cortisone-like medications. Some persons feel an increased sense of well-being and are not sleepy at bedtime. Long-term use of cortisone medications is best avoided, unless required for a severe condition. If your condition does not remit, or relapses after the course of corticosteroid medication, you should consult your physician. Stretching Exercises for the Back The physician has recommended that you begin stretching exercises for your back. These are often used even while the back is painful. However, you should notify the physician if the activities seem to increase your pain. PELVIC TILT: Lie flat on your back with knees bent. Tighten your stomach and buttock muscles so it flattens your lower back against the floor. Hold 10 seconds. Repeat 10 times, twice daily. KNEE RAISE: Lying on the back with knees bent, raise one knee to your chest, then the other. Hold both knees against the chest 10 seconds, then lower one knee at a time. Repeat 10 times, twice daily. PARTIAL TRUNK RAISE: Lie face down, arms at your sides. Keeping your waist on the floor, use your arms raise your chest up. Support yourself on your elbows for 30 seconds. Repeat twice daily, increasing the time to two minutes as you recover. FOLLOW-UP CARE: If you have been referred to a physician for follow-up care, call the physician s office for an appointment as you were instructed or within the next two days. If you experience worsening or a significant change in your symptoms, notify the physician immediately or return to the Emergency Department at any time for re-evaluation. Dr. Angel Gallego Orthopaedic surgery [address] [place] [address] [place] [address] [phone] Forms: Smoking Cessation Education
[2017-10-02 18:52] VITALS: BP 136/64
== END 2017-10-02 18:56 | disposition home or self-care (01) ==
LOC: ER 17:33
DX: M54.31 Sciatica, right side (principal); G89.29 Other chronic pain; M54.9 Dorsalgia, unspecified
CPT/HCPCS: 99283; 96372; J1100